=== PATIENT | female | born 1930 | race Caucasian/White ===

== ENCOUNTER 2019-08-14 01:48 | Emergency (ER) | payer MEDICARE, OTHER ==
[~2019-08-14] VITALS: Ht 160 cm; Wt 53.1 kg
[~2019-08-14 01:48] MED LIST: ACET325 PO; ALEN10; ASCO500 PO; ASPI81CH PO; ASPI81EC PO; ATOR10; ATOR20 PO; ATOR40TA PO; AZIT500 PO; Afrin15 ML; CHOL10002; CHOL10002 PO; CONEST1.25; CYAN1000 PO; DABI150C; DABI150C PO; DILT120; DILT120ERA PO; DILT180 PO; DOCU100; Diovan40 MG; ELIQUIS5 MG PO; ESOM20; ESOM20 PO; ESTR1; ESTR2 PO; FISH1000 PO; FLAX PO; FLUT.05NI; FLUT44OIA INH; FURO20 PO; GLUC500 PO; GLUCHON PO; Glucosamine 1,1 EACH PO; HYDACE10B PO; HYDACE5 PO; LEVSOD50 PO; METO25ER PO; METO50 PO; METO50ER PO; MOMENI; NAPR220 PO; Norco 5-325 Ta1 EACH PO; OXYB5 PO; OXYB5ER PO; PANT40 PO; PARO20; PARO20 PO; POLY500 PO; PRADAXA75 MG PO; PROG100; PROG100 PO; Prinivil10 MG PO; THYR60 PO; TRAZ50; TRAZ50 PO; TROSPIUM CHLORI20 MG PO; VITAMIN D3400 UNIT PO; VITB100 PO; Vitamin B Comple1 EA PO; Voltaren100 GM TOP; [UNRECOGNIZED DRUG - OTHER] PO
[2019-08-14 02:16] LABS: International Normalized Ratio 1.1; Prothrombin Time Results 11.6 Sec (9.7-11.5)
[2019-08-14 02:19] LABS: BASOPHILS ABSOLUTE AUTO 0.04 K/mm3 (0.00-0.23); BASOPHILS PERCENT AUTO 1 % (0-2); EOSINOPHILS ABSOLUTE AUTO 0.19 K/mm3 (0.00-0.68); EOSINOPHILS PERCENT AUTO 3 % (0-6); Hematocrit 42.3 % (33.0-51.0); Hemoglobin 13.5 g/dL (11.5-16.0); IMMATURE GRAN ABSOLUTE AUTO 0.04 K/mm3 (0.00-0.10); IMMATURE GRAN PERCENT AUTO 1 % (0-1); LYMPHOCYTES ABSOLUTE AUTO 2.21 K/mm3 (0.84-5.20); LYMPHOCYTES PERCENT AUTO 31 % (21-46); MONOCYTES ABSOLUTE AUTO 0.56 K/mm3 (0.16-1.47); MONOCYTES PERCENT AUTO 8 % (4-13); Mean Corpuscular HGB 29.8 pg (26.0-34.0); Mean Corpuscular HGB Conc 31.9 g/dL (31.5-36.5); Mean Corpuscular Volume 93 fL (80-100); Mean Platelet Volume 9.6 fL (9.1-12.4); NEUTROPHILS ABSOLUTE AUTO 4.07 K/mm3 (1.96-9.15); NEUTROPHILS PERCENT AUTO 57 % (41-73); Platelet Count 199 K/mm3 (150-400); RDW Coefficient Variation 16.1 % (11.7-14.2); RDW Standard Deviation 55.5 fL (35.1-46.3); Red Blood Cell Count 4.53 M/mm3 (3.80-5.20); White Blood Cell Count 7.11 K/mm3 (4.00-11.30)
[2019-08-14 02:23] LABS: Alanine Aminotransfer (ALT/SGP 61 U/L (12-78); Albumin, Blood 3.9 g/dL (3.4-5.0); Albumin/Globulin Ratio 1.1 (0.8-1.8); Alk Phos 144 U/L (50-136); Anion Gap 4 mmol/L (6-16); Aspartate Aminotrans (AST/SGOT 61 U/L (12-37); Bilirubin, Total 0.6 mg/dL (0.1-1.0); Blood Urea Nitrogen 16 mg/dL (8-24); Bun/Creatinine Ratio 19.3 (12.0-20.0); CO2, Blood 29 mmol/L (21-32); Calcium, Blood 8.9 mg/dL (8.5-10.1); Chloride, Blood 107 mmol/L (98-108); Creatinine, Blood 0.83 mg/dL (0.40-1.00); Globulin, Blood 3.4 g/dL (2.2-4.0); Glomerular Filtration Rate >60 (60-); Glucose, Blood 102 mg/dL (70-99); Potassium, Blood 4.2 mmol/L (3.5-5.5); Sodium, Blood 140 mmol/L (136-145); Total Protein, Blood 7.3 g/dL (6.4-8.2); Troponin I <0.015 ng/mL (0.000-0.040)
== END 2019-08-14 03:25 | disposition home or self-care (01) ==
LOC: ER 01:48
PROVIDERS: Emergency Medicine
DX: I48.91 Unspecified atrial fibrillation (principal); Z88.0 Allergy status to penicillin; Z88.2 Allergy status to sulfonamides; Z88.1 Allergy status to other antibiotic agents; Z91.048 Other nonmedicinal substance allergy status; Z79.899 Other long term (current) drug therapy; Z86.73 Personal history of transient ischemic attack (TIA), and cerebral infarction without residual deficits; E03.9 Hypothyroidism, unspecified; I10 Essential (primary) hypertension; K21.9 Gastro-esophageal reflux disease without esophagitis; G47.30 Sleep apnea, unspecified
CPT/HCPCS: 36415; 71045; 80053; 83735; 83880; 84484; 85025; 85610; 93005; 93010; 96374; 96375; 99285-25; J1940

== ENCOUNTER 2020-11-03 14:42 | Emergency (ER) | payer MEDICARE, OTHER ==
[~2020-11-03] VITALS: Ht 170.2 cm; Wt 59.0 kg
[2020-11-03 15:54] LABS: BASOPHILS ABSOLUTE AUTO 0.05 K/mm3 (0.00-0.23); BASOPHILS PERCENT AUTO 1 % (0-2); EOSINOPHILS ABSOLUTE AUTO 0.17 K/mm3 (0.00-0.68); EOSINOPHILS PERCENT AUTO 2 % (0-6); Hematocrit 41.9 % (33.0-51.0); Hemoglobin 13.3 g/dL (11.5-16.0); IMMATURE GRAN ABSOLUTE AUTO 0.01 K/mm3 (0.00-0.10); IMMATURE GRAN PERCENT AUTO 0 % (0-1); LYMPHOCYTES ABSOLUTE AUTO 3.28 K/mm3 (0.84-5.20); LYMPHOCYTES PERCENT AUTO 44 % (21-46); MONOCYTES ABSOLUTE AUTO 0.62 K/mm3 (0.16-1.47); MONOCYTES PERCENT AUTO 8 % (4-13); Mean Corpuscular HGB 30.5 pg (26.0-34.0); Mean Corpuscular HGB Conc 31.7 g/dL (31.5-36.5); Mean Corpuscular Volume 96 fL (80-100); NEUTROPHILS ABSOLUTE AUTO 3.34 K/mm3 (1.96-9.15); NEUTROPHILS PERCENT AUTO 45 % (41-73); Platelet Count 192 K/mm3 (150-400); RDW Coefficient Variation 13.4 % (11.7-14.2); RDW Standard Deviation 47.8 fL (35.1-46.3); Red Blood Cell Count 4.36 M/mm3 (3.80-5.20); White Blood Cell Count 7.47 K/mm3 (4.00-11.30)
[2020-11-03 16:07] LABS: International Normalized Ratio 1.12; Prothrombin Time Results 11.9 Sec (9.7-11.5)
[2020-11-03 16:20] LABS: Alanine Aminotransfer (ALT/SGP 39 U/L (12-78); Albumin, Blood 3.6 g/dL (3.4-5.0); Albumin/Globulin Ratio 1.1 (0.8-1.8); Alk Phos 124 U/L (50-136); Anion Gap 3 mmol/L (6-16); Aspartate Aminotrans (AST/SGOT 35 U/L (12-37); Bilirubin, Total 0.6 mg/dL (0.1-1.0); Blood Urea Nitrogen 17 mg/dL (8-24); CO2, Blood 30 mmol/L (21-32); Calcium, Blood 8.8 mg/dL (8.5-10.1); Chloride, Blood 109 mmol/L (98-108); Creatinine, Blood 0.81 mg/dL (0.40-1.00); Globulin, Blood 3.2 g/dL (2.2-4.0); Glomerular Filtration Rate >60 (60-); Glucose, Blood 89 mg/dL (70-99); Potassium, Blood 4.1 mmol/L (3.5-5.5); Sodium, Blood 142 mmol/L (136-145); Total Protein, Blood 6.8 g/dL (6.4-8.2)
[2020-11-03 16:33] LABS: Magnesium, Blood 2.1 mg/dL (1.6-2.4); Troponin I <0.015 ng/mL (0.000-0.040)
== END 2020-11-03 20:52 | disposition home or self-care (01) ==
LOC: ER 14:42
PROVIDERS: Physician Assistant
DX: R55 Syncope and collapse (principal); R53.1 Weakness; E03.9 Hypothyroidism, unspecified; I10 Essential (primary) hypertension; K21.9 Gastro-esophageal reflux disease without esophagitis; Z79.01 Long term (current) use of anticoagulants; Z79.899 Other long term (current) drug therapy; Z88.0 Allergy status to penicillin; Z91.09 Other allergy status, other than to drugs and biological substances; Z88.2 Allergy status to sulfonamides; Z88.1 Allergy status to other antibiotic agents; Z86.73 Personal history of transient ischemic attack (TIA), and cerebral infarction without residual deficits
CPT/HCPCS: 70450; 80053; 83735; 84484; 85025; 85610; 93005; 93010; 99284-25

== ENCOUNTER 2021-10-30 11:22 | Inpatient (IN) | payer MEDICARE, OTHER ==
[~2021-10-30] VITALS: Ht 152.4 cm; Wt 58.6 kg
[2021-10-30 11:50] LABS: BASOPHILS ABSOLUTE AUTO 0.02 K/mm3 (0.00-0.23); BASOPHILS PERCENT AUTO 0 % (0-2); EOSINOPHILS ABSOLUTE AUTO 0.02 K/mm3 (0.00-0.68); EOSINOPHILS PERCENT AUTO 0 % (0-6); Hematocrit 43.7 % (33.0-51.0); IMMATURE GRAN ABSOLUTE AUTO 0.08 K/mm3 (0.00-0.10); IMMATURE GRAN PERCENT AUTO 1 % (0-1); LYMPHOCYTES ABSOLUTE AUTO 2.74 K/mm3 (0.84-5.20); LYMPHOCYTES PERCENT AUTO 20 % (21-46); MONOCYTES ABSOLUTE AUTO 0.77 K/mm3 (0.16-1.47); MONOCYTES PERCENT AUTO 6 % (4-13); Mean Corpuscular HGB 31.5 pg (26.0-34.0); Mean Corpuscular Volume 98 fL (80-100); Mean Platelet Volume 11.1 fL (9.1-12.4); NEUTROPHILS ABSOLUTE AUTO 9.93 K/mm3 (1.96-9.15); NEUTROPHILS PERCENT AUTO 73 % (41-73); Platelet Count 214 K/mm3 (150-400); RDW Coefficient Variation 15.9 % (11.7-14.2); RDW Standard Deviation 54.1 fL (35.1-46.3); Red Blood Cell Count 4.44 M/mm3 (3.80-5.20); White Blood Cell Count 13.56 K/mm3 (4.00-11.30)
[2021-10-30 11:57] LABS: Source, Urine Catheter
[2021-10-30 12:01] LABS: Appearance, Urine Hazy (Clear); Bilirubin, Urine Neg (Neg); Blood, Urine 1+ (Neg); Color, Urine Amber (P-Yellow); Glucose Qualitative, Urine Neg (Neg); Ketones, Urine Neg (Neg); Leukocyte Esterase, Urine 2+ (Neg); Nitrite, Urine Neg (Neg); Protein, Urine 3+ (Neg); Specific Gravity, Urine 1.025 (1.003-1.022); Urobilinogen, Urine 3+ (Normal)
[2021-10-30 12:03] LABS: Albumin, Blood 3.3 g/dL (3.4-5.0); Bilirubin, Total 2.3 mg/dL (0.1-1.0); Bun/Creatinine Ratio 45.2 (12.0-20.0); Calcium, Blood 9.3 mg/dL (8.5-10.1); Creatinine, Blood 1.35 mg/dL (0.40-1.00); Globulin, Blood 3.2 g/dL (2.2-4.0); Potassium, Blood 4.5 mmol/L (3.5-5.5); Total Protein, Blood 6.5 g/dL (6.4-8.2)
[2021-10-30 12:12] LABS: Bacteria Few /hpf; Squamous Epithelial Cells Few /hpf (Few)
[2021-10-30 12:13] LABS: Amorphous Light (0-Heavy)
[2021-10-30 12:14] LABS: Granular Casts 0-2 /lpf (0); Hyaline Casts 0-2 /lpf (0-2); Mucus Light (0-Heavy)
--- NOTE | 2021-10-30 16:43 | NUR ---
Pt admitted to PCU 1600. Pt alert but only oriented to self and knows she is in the hospital, but did not know what city. VSS on RA, BP soft. HR: 110-130s, will give prn metoprolol per orders.
[2021-10-30] MEDS ORDERED: PILO5 PO (16:59)
--- NOTE | 2021-10-30 17:01 | NUR ---
Pt HR- 120-130 sustained, prn metoprolol given per orders.
--- NOTE | 2021-10-30 17:30 | NUR ---
critical lab result. lactic acid 2.3, previous result was 2.6.
--- NOTE | 2021-10-30 17:46 | NUR ---
prn metoprolol iv given, HR 100-110 after dose.
--- NOTE | 2021-10-30 21:52 | NUR ---
ASSUMED CARE OF PATIENT AT [facility] 1909 FROM JAIME Magana RN. PATIENT CONFUSED; CALLS OUT INTO HALLWAY; PULLS ON LINES/TUBES/CORDS. PATIENT IN BOB DUE TO HIGH FALL RISK; UNSTEADY GAIT; WEAKNESS AND ATTEMPTING TO AMBULATE. AFIB ON TELE W/ A RATE OF 100; OXYGEN SATURATION ABOVE 90% ON ROOM AIR; HARD TO GET OXYGEN SATURATION; COOL TO TOUCH; WARM BLANKETS GIVEN. PATIENT HAD PULLED PIV ON DAYSHIFT; PG PLACED TO [facility] BY ARACELI Woods RN. IVF INFUSING PER ORDER. URINARY CATH DRAINING CAM COLORED URINE; ATTENDS IN PLACE FOR INCONTINENCE.
--- NOTE | 2021-10-30 22:34 | NUR ---
PATIENT TACYPNEA; APPEARS SOB BUT CONFUSED AND UNABLE TO ANSWER QUESTION. ELEVATED BNP; CALLED DR. RANDLE AND ORDERS FOR ONE TIME DOSE OF IV LASIX 40 NOW AND HOLD FLUIDS FOR NOW.
--- NOTE | 2021-10-31 06:15 | NUR ---
PATIENT WORE CPAP FOR ABOUT AN HOUR; PATIENT ANXIOUS AT TIMES; SLEPT FOR ABOUT FOUR HOURS TOTAL. NO OTHER ACUTE CHANGES TO REPORT.
[2021-10-31 06:35] LABS: BASOPHILS ABSOLUTE AUTO 0.01 K/mm3 (0.00-0.23); BASOPHILS PERCENT AUTO 0 % (0-2); EOSINOPHILS PERCENT AUTO 0 % (0-6); Hematocrit 44.4 % (33.0-51.0); Hemoglobin 13.7 g/dL (11.5-16.0); IMMATURE GRAN ABSOLUTE AUTO 0.08 K/mm3 (0.00-0.10); IMMATURE GRAN PERCENT AUTO 1 % (0-1); LYMPHOCYTES PERCENT AUTO 12 % (21-46); MONOCYTES ABSOLUTE AUTO 0.77 K/mm3 (0.16-1.47); MONOCYTES PERCENT AUTO 6 % (4-13); Mean Corpuscular HGB 31.6 pg (26.0-34.0); Mean Corpuscular HGB Conc 30.9 g/dL (31.5-36.5); Mean Corpuscular Volume 102 fL (80-100); Mean Platelet Volume 11.7 fL (9.1-12.4); NEUTROPHILS ABSOLUTE AUTO 9.86 K/mm3 (1.96-9.15); NEUTROPHILS PERCENT AUTO 81 % (41-73); NRBC ABSOLUTE 0.02 K/mm3 (0.00-0.02); NRBC Auto 0.2 /100 WBC (0.0-0.2); Platelet Count 223 K/mm3 (150-400); RDW Coefficient Variation 16.3 % (11.7-14.2); RDW Standard Deviation 59.1 fL (35.1-46.3); Red Blood Cell Count 4.34 M/mm3 (3.80-5.20); White Blood Cell Count 12.12 K/mm3 (4.00-11.30)
[2021-10-31 07:26] LABS: Magnesium, Blood 2.5 mg/dL (1.6-2.4)
[2021-10-31 07:31] LABS: Albumin/Globulin Ratio 1.1 (0.8-1.8); Bilirubin, Total 3.3 mg/dL (0.1-1.0); Bun/Creatinine Ratio 37.8 (12.0-20.0); Calcium, Blood 8.6 mg/dL (8.5-10.1); Creatinine, Blood 1.64 mg/dL (0.40-1.00); Globulin, Blood 2.7 g/dL (2.2-4.0); Total Protein, Blood 5.7 g/dL (6.4-8.2)
[2021-10-31 07:32] LABS: Potassium, Blood 6.5 mmol/L (3.5-5.5)
[2021-10-31 13:55] LABS: Albumin, Blood 2.4 g/dL (3.4-5.0); Albumin/Globulin Ratio 0.9 (0.8-1.8); Bilirubin, Total 2.9 mg/dL (0.1-1.0); Bun/Creatinine Ratio 39.9 (12.0-20.0); Creatinine, Blood 1.63 mg/dL (0.40-1.00); Globulin, Blood 2.7 g/dL (2.2-4.0); Total Protein, Blood 5.1 g/dL (6.4-8.2)
--- NOTE | 2021-10-31 17:27 | NUR ---
Spoke with Primary RN Brian, Dr Navarrete, and discussed case. Pt is confused and experiencing expressive aphasia. Family may benefit from discussion regarding code status and advanced care planning. Pt resting in bed and is in BOB. Pt appears confused and unable to verbalize. Pt appears anxious. Pt's son Dejuan is at bedside. Discussed plan of care. Dejuan reports Pt lives at home with him, her spouse, and other brothers. Discussed plan to have conversation with spouse regarding Pt's code status. Dejuan reports no concerns at this time. Will attempt to call spouse for advanced care planning and code status wishes. Palliative Care will remain available.
--- NOTE | 2021-10-31 18:34 | NUR ---
SHIFT SUMMARY PT HAS BEEN CONFUSED AND AGITATED FOR THE DURATION. PT CONSTANTLY FIDGETS AND REPOSITIONS SELF. SPEECH HAS BEEN GARBLED WITH OCCASIONAL INTELLIGIBLE WORDS. PROVIDER ATTEMPTED TO CONVERSE WITH PT AND COULD NOT DEFINITIVELY SAY THAT THE PT WAS UNDERSTANDING. FAMILY MEMBER AT BEDSIDE WAS UNABLE TO PROVIDE TEACH BACK ON INFORMATION YET STATED AN UNDERSTANDING, CONTINUE TO REINFORCE.
[2021-11-01 05:00] LABS: BASOPHILS ABSOLUTE AUTO 0.05 K/mm3 (0.00-0.23); BASOPHILS PERCENT AUTO 0 % (0-2); EOSINOPHILS ABSOLUTE AUTO 0.03 K/mm3 (0.00-0.68); EOSINOPHILS PERCENT AUTO 0 % (0-6); Hemoglobin 14.2 g/dL (11.5-16.0); IMMATURE GRAN ABSOLUTE AUTO 0.27 K/mm3 (0.00-0.10); IMMATURE GRAN PERCENT AUTO 1 % (0-1); LYMPHOCYTES ABSOLUTE AUTO 3.48 K/mm3 (0.84-5.20); LYMPHOCYTES PERCENT AUTO 13 % (21-46); MONOCYTES ABSOLUTE AUTO 1.02 K/mm3 (0.16-1.47); MONOCYTES PERCENT AUTO 4 % (4-13); Mean Corpuscular HGB 32.1 pg (26.0-34.0); Mean Corpuscular HGB Conc 32.3 g/dL (31.5-36.5); Mean Corpuscular Volume 100 fL (80-100); Mean Platelet Volume 11.8 fL (9.1-12.4); NEUTROPHILS PERCENT AUTO 82 % (41-73); NRBC ABSOLUTE 0.03 K/mm3 (0.00-0.02); NRBC Auto 0.1 /100 WBC (0.0-0.2); Platelet Count 226 K/mm3 (150-400); RDW Coefficient Variation 16.1 % (11.7-14.2); RDW Standard Deviation 57.1 fL (35.1-46.3); Red Blood Cell Count 4.42 M/mm3 (3.80-5.20); White Blood Cell Count 26.65 K/mm3 (4.00-11.30)
[2021-11-01 05:37] LABS: Albumin, Blood 2.9 g/dL (3.4-5.0); Albumin/Globulin Ratio 1.2 (0.8-1.8); Bun/Creatinine Ratio 39.6 (12.0-20.0); Calcium, Blood 8.2 mg/dL (8.5-10.1); Creatinine, Blood 2.02 mg/dL (0.40-1.00); Globulin, Blood 2.5 g/dL (2.2-4.0); Potassium, Blood 6.3 mmol/L (3.5-5.5); Total Protein, Blood 5.4 g/dL (6.4-8.2)
--- NOTE | 2021-11-01 05:58 | NUR ---
SHIFT SUMMARY PT ALERT, ORIENTED TO SELF. GARBLED SPEECH, DIFFICULT TO UNDERSTAND. WILL FOLLOW SOME COMMANDS SUCH , "OPEN YOUR MOUTH" BUT UNABLE TO HAVE CONVERSATION. SP02>92% ON RA. TELEMETRY READS AFIB, HR 60'S. PT HAS REYES CATHETER DRAINING MINIMAL DARK YELLOW URINE TO GRAVITY. PT APPEARED TO BE UNCOMFORTABLE WHILE SITTING UP TO TAKE MEDS, GRABBED LOWER ABD. BLADDER SCAN PERFORMED, SHOWED 24 MLS. PT WORE BOB VEST, PULLED AT TELE AND VEST ALL NIGHT, ATTEMPTING TO CLIMB OUT OF BED. THIS MORNING PT HAD CRITICAL LAB RESULT OF K+: 6.3. CALL PLACED TO MD KAMINSKI W/ ORDERS. CALL LIGHT IN REACH.
[2021-11-01 08:10] LABS: HBSAG SCREEN Negative (Negative); HEP A AB, IGM Negative (Negative); HEP B CORE AB, IGM Negative (Negative); HEP C VIRUS AB <0.1 (0.0-0.9)
--- NOTE | 2021-11-01 13:49 | NUR ---
Joint visit from Dr Navarrete and this PC RN with family in Pt's room. Multiple family members at bedside with several more on speaker phone. Dr Navarrete provides update on Pt's current condition, plan of care, and prognosis. Dr Navarrete answers questions and offers comfort care as an option. All family members are in agreement that Pt would want to focus on comfort at this point in her life. Educated on comfort care philosophy with V/U made by family. Offered therapeutic listening and answered questions. Discussed the option for family to consider hospice services if Pt does not become imminent. Family reports they will discuss further regarding hospice. Family expresses appreciation and report no other concerns at this time. Dr Navarrete placed comfort care orders. Placed order for comfort care cart. PPS 30% Palliative Care will remain available for symptom management and supportive visits.
--- NOTE | 2021-11-01 14:29 | NUR ---
COMFORT CARE NOTE PT IS RESTING IN BED AT THIS TIME, APPEARS CALM AND RELAXED. FAMILY IS AT BEDSIDE. PT REPOSITIONED AND SUPPLEMENTAL OXYGEN VERIFIED AND TITRATED FOR COMFORT AND TO ASSIST WITH DYSPNEA. PT DOES NOT APPEAR TO BE IN ANY PAIN OR DISCOMFORT AND IS UNABLE TO VERBALLY CONFIRM OR DENY DUE TO GARBLED SPEECH. FAMILY MEMBERS WERE OFFERED REFRESHMENT AND DECLINED. FAMILY MEMBERS WERE ORIENTED TO ROOM AND CALL LIGHT.
--- NOTE | 2021-11-01 19:11 | NUR ---
Call back - Pt's family was in the room. Pt's daughter updates PC on pt's rapid decline and decision to be placed on comfort care. "Her heart's only working at 25%." Verbal prayer offered for pt and family present. Daughter requests a work measurement engineer. This typewriter operator automatic calls [facility] and requests Father Thad. The caller states she will pass on the message. Informed family of the call and they verbalized gratitude for the visit.
--- NOTE | 2021-11-02 05:16 | NUR ---
SHIFT SUMMARY PT PLACED ON COMFORT CARE DURING DAYSHIFT. GROUPS OF FAMILY PRESENT DURING THE DAY AND EVENING. GRANDSON STAYED OVERNIGHT. PT SLEEPS INTERMITTENTLY. PT OFTEN CONUSED AND DISORIENTED WHEN AWAKING FROM SLEEP. REDIRECTED BY GRANDSON. FEELS NUMBNESS IN HANDS. PAIN RELIEVED BY Q1 ROXANOL. PT GIVEN ATIVAN AT 0258. ASLEEP SINCE. IN BED SLEEPING WITH GRANDSON AT SIDE IN SLEEPING BAG. WILL CONTINUE TO MONITOR AND PROVIDE COMFORT MEASURES UNTIL REPORT GIVEN
--- NOTE | 2021-11-02 11:43 | NUR ---
Comfort Care Visit Pt resting in bed with her eyes closed. Pt appears comfortable with no S/S of distress at this time. Family at bedside. Offered therapeutic listening and answered questions. Family report no concerns at this time. Palliative Care will remain available.
--- NOTE | 2021-11-02 18:23 | NUR ---
SHIFT SUMMARY PT ON COMFORT CARE. PT RECIEVED ATIVAN AND ROXANOL AT 0739 AND 0937 PER EMAR. PT FAMILY MEMBERS HAVE BEEN COMING AND GOING ALL SHIFT, ROTATING SHIFTS. PT SLEPT T/O DAY EVEN WITH FAMILY IN ROOM. PT GRANDSON SLEPT IN PERSONAL SLEEPING BAG IN ROOM T/O NIGHT AND REMAINED FOR THE DAY. FOOD CART FOR FAMILY MEMBERS RESTOCKED.
--- NOTE | 2021-11-03 04:52 | NUR ---
FAMILY MEMBER CAME TO DESK AN NOTIFIED OF PT'S PASSING. WENT TO ASSESS PULSE AND CALLED TIME 04:51
== END 2021-11-03 07:33 | DRG 871 ==
LOC: ER 11:22 → PCU 14:22
PROVIDERS: Emergency Medicine; Internal Medicine; Nurse Practitioner Acute Care; ADMIT Internal Medicine
PROC: 5A09357 Assistance with Respiratory Ventilation, Less than 24 Consecutive Hours, Continuous Positive Airway Pressure (ICD-10-PCS; principal; 2021-10-31)
DX: A41.9 Sepsis, unspecified organism (principal); G92.8 Other toxic encephalopathy; J18.9 Pneumonia, unspecified organism; I50.21 Acute systolic (congestive) heart failure; I50.32 Chronic diastolic (congestive) heart failure; N17.9 Acute kidney failure, unspecified; I13.0 Hypertensive heart and chronic kidney disease with heart failure and stage 1 through stage 4 chronic kidney disease, or unspecified chronic kidney disease; E87.2 Acidosis; I42.0 Dilated cardiomyopathy; I25.5 Ischemic cardiomyopathy; Z51.5 Encounter for palliative care; Z66 Do not resuscitate; E03.9 Hypothyroidism, unspecified; I48.91 Unspecified atrial fibrillation; R65.20 Severe sepsis without septic shock; E87.5 Hyperkalemia; R40.0 Somnolence; R74.01 Elevation of levels of liver transaminase levels; G47.33 Obstructive sleep apnea (adult) (pediatric); N18.30 Chronic kidney disease, stage 3 unspecified; Z90.710 Acquired absence of both cervix and uterus; Z90.89 Acquired absence of other organs; Z88.0 Allergy status to penicillin; Z88.2 Allergy status to sulfonamides; Z88.1 Allergy status to other antibiotic agents; Z91.048 Other nonmedicinal substance allergy status; Z98.890 Other specified postprocedural states; Z98.1 Arthrodesis status; Z86.73 Personal history of transient ischemic attack (TIA), and cerebral infarction without residual deficits; Z79.01 Long term (current) use of anticoagulants; Z78.1 Physical restraint status
CPT/HCPCS: 36415; 51702; 70450; 71045; 74176; 76705; 80053; 80074; 81001; 82140; 82947; 83605; 83735; 83880; 84132; 84145; 84484; 85025; 87040; 87086; 93005; 93010; 93306; 94660; 94762; 96365; 96375; 99285-25; A9270; C9113; G0480; J0610; J1815; J1940; J1956; J2060; J7030; J7070; J7120